=== PATIENT | female | born 1960 | race Caucasian/White ===

== ENCOUNTER 2017-06-29 09:08 | Outpatient (CLI) | payer BC ==
--- NOTE | 2017-06-30 14:54 | Mammography Report ---
DIGITAL SCREENING MAMMOGRAM: 06/29/2017 CLINICAL INDICATION: A 56-year-old with history of late childbearing for screening. COMPARISON: 01/2014, 03/2011, 01/2009, 12/2007 TECHNIQUE: Routine CC and MLO projections were obtained of the breasts as well as bilateral laterall y exaggerated craniocaudal views. FINDINGS: The breasts again demonstrate extremely dense parenchyma, limiting the sensitivity of mamm ography. Punctate, typically benign calcifications are present. No suspicious masses, clustered willian rocalcifications, or regions of architectural distortion are identified. IMPRESSION: BENIGN FINDINGS. RECOMMENDATION: Routine annual screening unless otherwise clinically indicated. BIRADS CATEGORY 2 - BENIGN FINDINGS. STANDARD QUALIFYING STATEMENTS 1. This examination was reviewed with the aid of Computer-Aided Detection (CAD). 2. A negative or benign imaging report should not delay biopsy if clinically suspicious findings are present. Consider surgical consultation if warranted. More than 5% of cancers are not identified by i maging. 3. Dense breasts may obscure an underlying neoplasm. JOB #: [id number] EXT JOB #:[id number]
== END 2017-06-29 09:09 | disposition home or self-care (01) ==
LOC: DI.N 09:08
PROVIDERS: ATTEND Family Medicine
DX: Z12.31 Encounter for screening mammogram for malignant neoplasm of breast (principal)
CPT/HCPCS: 77067

== ENCOUNTER 2018-10-19 10:32 | Outpatient (CLI) | payer OTHER ==
--- NOTE | 2018-10-19 11:22 | Mammography Report ---
Reason: SCREENING MAMMO Procedure Date: 10/19/2018 Accession Number: [id number] / [id number] Procedure: MGN - Screening Mammo Dig Bilat CPT Code: FULL RESULT: EXAM: Screening Mammo Dig Bilat DATE: 10/19/2018 10:51 AM CLINICAL HISTORY: Routine screening. No reported personal or family history of breast cancer. TECHNIQUE: Bilateral CC and MLO views were obtained. COMPARISON: 06/29/2017 through 01/23/2014 FINDINGS: The breasts demonstrate extremely dense parenchyma bilaterally, limiting the sensitivity of mammography. Bilateral breasts: There are no suspicious masses, calcifications or areas of distortion. IMPRESSION: Negative examination RECOMMENDATION: Routine annual screening unless otherwise clinically indicated. BI-RADS CATEGORY 1: Negative STANDARD QUALIFYING STATEMENTS: 1. This examination was reviewed with the aid of Computer-Aided Detection (CAD). 2. A negative or benign imaging report should not preclude biopsy if clinically suspicious findings are present. 3. Dense breasts may obscure an underlying neoplasm. 4. This examination was reviewed without the aid of 3D breast imaging (tomosynthesis).
== END 2018-10-19 10:33 | disposition home or self-care (01) ==
LOC: DI.N 10:32
DX: Z12.31 Encounter for screening mammogram for malignant neoplasm of breast (principal)
CPT/HCPCS: 77067

== ENCOUNTER 2019-05-17 19:40 | Emergency (ER) | payer OTHER ==
--- NOTE | 2019-05-17 20:23 | ED Physician Documentation ---
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 She had a contacts on so she really did not think that much of it but then she developed a "floater" in the left lower quadrant of that eye that comes and goes. She went home and took her contacts out wondering if it could be something related to the contacts in the fluorescent lights but the symptoms did not resolve. The halo has gone away although the lights driving here were "sparkly ear" than normal. She still has this black small floater in the left lower quadrant of her vision of the left eye that comes and goes. She never really had any blurry vision. She is concerned because she has a history of a spot on 1 of her retinas that she does not know which one it was that look like it could be a detachment in the past and is been followed by her charge out clerk at [facility]. 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 Review of Systems Eyes: reports: Irritation (She felt like there was something hanging off of her eyelashes causing her vision change or on her hair.), Other (No pain in the eye.) Neurologic: denies: Headache PD PAST MEDICAL HISTORY - Past Medical History Cardiovascular: None Respiratory: None Endocrine/Autoimmune: None GI: None : None HEENT: None Psych: None Musculoskeletal: None Derm: None - Past Surgical History HEENT: Other - Present Medications Home Medications: Ambulatory Orders Medication Instructions Recorded Confirmed Alprazolam [Xanax] 0.5 mg PO DAILY 07/26/14 07/26/14 - Allergies Allergies/Adverse Reactions: Allergies Allergy/AdvReac Type Severity Reaction Status Date / Time codeine Allergy Unknown Verified 05/18/19 07:56 oxycodone Allergy Nausea Verified 05/17/19 19:46 hay fever Allergy Unknown Uncoded 05/18/19 07:56 PD ED PE NORMAL - Vitals Vital signs reviewed: Yes - General General: Alert and oriented X 3, No acute distress, Well developed/nourished - HEENT HEENT: Atraumatic, PERRL, EOMI, Moist mucous membranes, Other (Funduscopic exam is limited in this environment. The fundus appears normal. Visual acuity with glasses R 20/25 and L 20/40. 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 Ghosh who is gracious enough to take my call. He recommend that she follow-up with her manager adobe at [facility] tomorrow and that he would see her in follow-up if they were unavailable for some reason. Departure - Departure Disposition: 01 Home, Self Care Clinical Impression: Vision changes Condition: Good Instructions: ED Tear Retinal Follow-Up: [facility] [Provider Group] Comments: Follow-up first thing tomorrow morning with your eye doctor for evaluation for possible vitreous tear. If they are not available for some reason, Dr Ghosh at [facility] has agreed to evaluate you. Discharge Date/Time: 05/17/19 21:56
[2019-05-17 20:38] VITALS: BP 153/97
== END 2019-05-17 21:56 | disposition home or self-care (01) ==
LOC: ED 19:40
DX: H53.9 Unspecified visual disturbance (principal)
CPT/HCPCS: 99282

== ENCOUNTER 2019-10-18 10:23 | Outpatient (CLI) | payer OTHER ==
--- NOTE | 2019-10-18 11:05 | Mammography Report ---
Reason: ROUTINE MAMMO Procedure Date: 10/18/2019 Accession Number: [id number] / [id number] Procedure: MGN - Screening Mammo w/Benito CPT Code: Final Report FULL RESULT: EXAM: Screening Mammo w/Benito DATE: 10/18/2019 10:48 AM CLINICAL HISTORY: Screening encounter. History of late childbearing. TECHNIQUE: (B) - Bilateral CC, laterally exaggerated CC, MLO views were obtained. COMPARISON: 10/19/2018 through 01/23/2014. PARENCHYMAL PATTERN: (VD) - The breast(s) demonstrate(s) extremely dense parenchyma, limiting the sensitivity of mammography. FINDINGS: There are no suspicious masses, calcifications, or areas of distortion. IMPRESSION: Negative examination. BI-RADS category 1. RECOMMENDATION: (ANNUAL) - Recommend routine annual screening mammography. BI-RADS CATEGORY: (1) - Negative. STANDARD QUALIFYING STATEMENTS: 1. This examination was not reviewed with the aid of Computer-Aided Detection (CAD). 2. A negative or benign imaging report should not preclude biopsy if clinically suspicious findings are present. 3. Dense breasts may obscure an underlying neoplasm. 4. This examination was reviewed with the aid of 3D breast imaging (tomosynthesis).
== END 2019-10-18 10:24 | disposition home or self-care (01) ==
LOC: DI.N 10:23
DX: Z12.31 Encounter for screening mammogram for malignant neoplasm of breast (principal)
CPT/HCPCS: 77063; 77067

== ENCOUNTER 2021-01-21 09:48 | Outpatient (CLI) | payer OTHER ==
--- NOTE | 2021-01-23 11:59 | Mammography Report ---
BILATERAL DIGITAL SCREENING MAMMOGRAM 3D/2D: 01/21/2021 CLINICAL: Routine screening. Comparison is made to exams dated: 10/18/2019 mammogram, 10/19/2018 mammogram, 06/29/2017 mammogram, mammogram, 01/23/2014 mammogram, and 03/17/2011 mammogram - [facility]. The tissue of both breasts is extremely dense, which lowers the sensitivity of mammography. No significant masses, calcifications, or other findings are seen in either breast. There has been no significant interval change. IMPRESSION: NEGATIVE There is no mammographic evidence of malignancy. A 1 year screening mammogram is recommended. This exam was interpreted at Station ID: [id number]. NOTE: For mammograms, a report in lay terms will be sent to the patient. Approximately 15% of breast malignancies will not be visualized mammographically. In the management of a palpable breast mass, a negative mammogram must not discourage biopsy of a clinically suspicious lesion. Electronically Signed By: Marcos Sosa acr/penrad:01/22/2021 16:49:30 ACR BI-RADS Category 1: Negative 3341F PARENCHYMAL PATTERN: (VD) - The breast(s) demonstrate(s) extremely dense parenchyma, limiting the sen sitivity of mammography. BI-RADS CATEGORY: (1) - 1 RECOMMENDATION: (ANNUAL) - Recommend routine annual screening mammography. [id number] 1 year screening LATERALITY: (B)
== END 2021-01-21 09:49 | disposition home or self-care (01) ==
LOC: DI 09:48
DX: Z12.31 Encounter for screening mammogram for malignant neoplasm of breast (principal)

== ENCOUNTER 2021-01-27 10:26 | Outpatient (CLI) | payer OTHER ==
[~2021-01-27 10:26] MED LIST: GADOBUTROL 10 MMOL/10 ML VIAL ONE
--- NOTE | 2021-01-27 11:39 | MRI Report ---
PROCEDURE: Brain W/WO INDICATIONS: MEMORY LOSS CONTRAST: IV CONTRAST: Gadavist ml: 6.2 TECHNIQUE: Noncontrast axial T1 spin echo, axial T2 fast spin echo, sagittal and axial FLAIR, coronal T2 fast sp in echo, axial gradient echo, axial diffusion and ADC through the brain. After the administration of contrast, axial and coronal T1 spin echo with fat saturation through the brain. COMPARISON: None. FINDINGS: Image quality: Excellent. CSF spaces: Basal cisterns are patent. No extra-axial fluid collections. Ventricles are normal in size and shape. Brain: No midline shift. No intracranial bleeds. There is mild enlargement of the pituitary gland. There is cerebral volume loss for age. There is periventricular white matter chronic small vessel is chemic change. The brainstem appears normal. Diffusion-weighted images demonstrate no acute ischemi c insults. No chronic ischemic insults. Normal intravascular flow voids are present. Skull and face: Calvarial marrow is normal in signal. Orbits appear normal. Sinuses: Sinuses and mastoids appear clear. IMPRESSION: 1. Mild pituitary gland enlargement. Further evaluation with MRI pituitary protocol is recommended. Reviewed by: Lisa Lopez MD on 01/27/2021 11:38 AM PDT Approved by: Lisa Lopez MD on 01/27/2021 11:38 AM PDT Station ID: [id number]
[2021-01-27] MEDS ORDERED: GADOBUTROL 10 MMOL/10 ML VIAL IVP ONE (14:01)
== END 2021-01-27 10:27 | disposition home or self-care (01) ==
LOC: DI 10:26
PROVIDERS: ATTEND Family Medicine
DX: R41.3 Other amnesia (principal); E23.6 Other disorders of pituitary gland
CPT/HCPCS: 70553; A9585

== ENCOUNTER 2021-02-17 12:48 | Outpatient (CLI) | payer OTHER ==
[2021-02-17] MEDS ORDERED: GADOBUTROL 10 MMOL/10 ML VIAL ONE (12:59)
--- NOTE | 2021-02-17 16:22 | MRI Report ---
PROCEDURE: Brain W/WO INDICATIONS: PITUITARY ADENOMA,PITUITARY GIGANTISM CONTRAST: IV CONTRAST: Gadavist ml: 6.2 TECHNIQUE: Noncontrast axial T1 spin echo, axial T2 fast spin echo, sagittal and axial FLAIR, coronal T2 fast sp in echo, axial gradient echo, axial diffusion and ADC through the brain. After the administration of contrast, axial and coronal T1 spin echo with fat saturation through the brain. COMPARISON: MRI brain 01/27/2021.. FINDINGS: Image quality: Excellent. CSF spaces: Basal cisterns are patent. No extra-axial fluid collections. Ventricles are normal in size and shape. Brain: No midline shift. No intracranial bleeds or masses. There is mild, diffuse cerebral volume l oss. A few, small, punctate foci of increased T2 signal are noted in the frontal subcortical white ma tter tracts compatible with minimal chronic microvascular ischemic change. No abnormal intracranial e nhancement. There is cerebral volume loss for age. There is periventricular white matter chronic sm all vessel ischemic change. The brainstem appears normal. Diffusion-weighted images demonstrate no acute ischemic insults. No chronic ischemic insults. Normal intravascular flow voids are present. D ural sinuses demonstrate normal postcontrast enhancement. Pituitary gland has normal size and contour. No pituitary mass identified. No areas of delayed postco ntrast enhancement identified in the pituitary gland. Pituitary infundibulum is midline, has normal c ontours and demonstrates normal postcontrast enhancement. No suprasellar masses identified. The optic chiasm is normal. The cavernous sinus enhances normally. Skull and face: Calvarial marrow is normal in signal. Orbits appear normal. Sinuses: Sinuses and mastoids appear clear. IMPRESSION: 1. No pituitary mass/nodule identified. 2. No abnormal intracranial mass or suspicious postcontrast enhancement. 3. Mild, diffuse cerebral volume loss. 4. Minimal subcortical white matter chronic microvascular ischemic changes. Reviewed by: Beatriz Reardon MD, PhD on 02/17/2021 4:21 PM PDT Approved by: Beatriz Reardon MD, PhD on 02/17/2021 4:21 PM PDT Station ID: [id number]
[2021-02-17] MEDS ORDERED: GADOBUTROL 10 MMOL/10 ML VIAL IVP ONE (17:44)
== END 2021-02-17 12:49 | disposition home or self-care (01) ==
LOC: DI 12:48
PROVIDERS: ATTEND Family Medicine
DX: I67.82 Cerebral ischemia (principal)
CPT/HCPCS: 70553; A9585

== ENCOUNTER 2021-05-13 12:17 | Outpatient (CLI) | payer OTHER ==
[2021-05-13 12:16] LABS: FECAL OCCULT BLOOD (FIT) NEGATIVE (NEGATIVE)
[2021-05-13 12:39] LABS: H. PYLORIS ANTIGEN STL NEGATIVE (Negative)
== END 2021-05-13 12:18 ==
LOC: LAB.WCP 12:17
PROVIDERS: ATTEND Family Medicine
DX: R19.7 Diarrhea, unspecified (principal)
CPT/HCPCS: 81599; 82274; 83993; 87045; 87177; 87209; 87329; 87338; 87427; 87449; 87493

== ENCOUNTER 2021-08-12 08:00 | Outpatient (CLI) | payer OTHER | END 2021-08-12 23:59 | LOC: LAB.N 08:00 | PROVIDERS: ATTEND Family Medicine | DX: J02.9 Acute pharyngitis, unspecified (principal) | CPT/HCPCS: 87070 ==

== ENCOUNTER 2022-07-24 07:55 | Outpatient (CLI) | payer OTHER ==
--- NOTE | 2022-07-27 11:44 | Mammography Report ---
BILATERAL DIGITAL SCREENING MAMMOGRAM 3D/2D WITH EXAGGERATED CC: 07/24/2022 CLINICAL: Routine screening. Comparison is made to exams dated: 01/21/2021 mammogram, 10/18/2019 mammogram, and 10/19/2018 mammogram - [facility]. Both breasts are extremely dense, which lowers the sensitivity of mammography (category d />75% gland ular tissue). No significant masses, calcifications, or other findings are seen in either breast. There has been no significant interval change. IMPRESSION: NEGATIVE There is no mammographic evidence of malignancy. A 1 year screening mammogram is recommended. Based on Tyrer-Cuzick model (a risk assessment model), the patient's lifetime risk is 22.1% and her 1 0 year risk is 9.5%. If a patient has an elevated risk, a more comprehensive evaluation should be con sidered and/or a referral to a genetic counselor. The [place] [employer], [employer], and NCCN Guidelines advise the consideration of Breast MRI as an adjunct to screening mammog horacio in patients whose "Lifetime risk to develop breast cancer" is 20% or higher. This exam was interpreted at Station ID: [id number]. NOTE: For mammograms, a report in lay terms will be sent to the patient. Approximately 15% of breast malignancies will not be visualized mammographically. In the management of a palpable breast mass, a negative mammogram must not discourage biopsy of a clinically suspicious lesion. Electronically Signed By: Bassem Paniagua M.D., jr/cheo:07/24/2022 10:38:37 ACR BI-RADS Category 1: Negative 3341F PARENCHYMAL PATTERN: (VD) - The breast(s) demonstrate(s) extremely dense parenchyma, limiting the sen sitivity of mammography. BI-RADS CATEGORY: (1) - 1 RECOMMENDATION: (ANNUAL) - Recommend routine annual screening mammography. [id number] 1 year screening LATERALITY: (B)
== END 2022-07-24 07:56 | disposition home or self-care (01) ==
LOC: DI 07:55
DX: Z12.31 Encounter for screening mammogram for malignant neoplasm of breast (principal)

== ENCOUNTER 2022-08-05 08:00 | Outpatient (CLI) | payer OTHER ==
[2022-08-05 21:55] LABS: BACTERIAL VAGINOSIS DNA NEGATIVE (NEGATIVE); CANDIDA GLABRATA DNA NEGATIVE (NEGATIVE); CANDIDA GROUP DNA NEGATIVE (NEGATIVE); CANDIDA KRUSEI DNA NEGATIVE (NEGATIVE); TRICHOMONAS VAGINALIS DNA NEGATIVE (NEGATIVE)
== END 2022-08-05 23:59 | disposition home or self-care (01) ==
LOC: LAB.WCP 08:00
PROVIDERS: ATTEND Physician Assistant
DX: N89.8 Other specified noninflammatory disorders of vagina (principal)
CPT/HCPCS: 81514

== ENCOUNTER 2022-09-04 10:47 | Outpatient (CLI) | payer OTHER ==
--- NOTE | 2022-09-04 14:44 | DEXA Report ---
PROCEDURE: Dexa Spine and/or Hip INDICATIONS: POST MENOPAUSAL TECHNIQUE: Dual energy x-ray absorptiometry (DXA) was performed on a Lat[employer]Leap System. Regions measur ed are the AP Spine, femoral neck, and if needed forearm. COMPARISON: None. FINDINGS: Lumbar Spine: Bone Mineral Density 1.196 g/cm/cm,T score 0.1, normal Left Femoral Neck: Bone Mineral Density 0.795 g/cm/cm, T score -1.7, osteopenia Left Hip: Bone Mineral Density 0.842 g/cm/cm,T score -1.3, osteopenia (T score greater or equal to -1.0: NORMAL) (T score from -1.1 to -2.4: OSTEOPENIA) (T score less than or equal to -2.5 to: OSTEOPOROSIS) Impression: Bone mineral density within the osteopenia range at the left hip and left femoral neck. Fracture risk is increased. Patients with diagnosis of osteoporosis or osteopenia should have regular bone mineral density assess ment. For those eligible for Medicare, routine testing is allowed once every 2 years. Testing frequ ency can be increased for patients who have rapidly progressing disease or for those who are receivin g medical therapy to restore bone mass. Reviewed by: Alberto Means MD on 09/04/2022 2:43 PM PST Approved by: Alberto Means MD on 09/04/2022 2:43 PM PST Station ID: [id number]
== END 2022-09-04 10:48 | disposition home or self-care (01) ==
LOC: DI 10:47
PROVIDERS: ATTEND Physician Assistant
DX: M85.89 Other specified disorders of bone density and structure, multiple sites (principal); Z78.0 Asymptomatic menopausal state

== ENCOUNTER 2022-11-13 13:15 | Outpatient (CLI) | payer OTHER | END 2022-11-13 13:30 | disposition home or self-care (01) | LOC: LAB.N 13:15 | PROVIDERS: ATTEND Physician Assistant Medical | DX: N30.00 Acute cystitis without hematuria (principal) | CPT/HCPCS: 87086; 87181 ==

== ENCOUNTER 2023-06-28 07:36 | Outpatient (CLI) | payer OTHER ==
[2023-06-28 12:19] LABS: BASOPHILS % (AUTO) 0.5 %; EOSINOPHILS # (AUTO) 0.2 10^3/uL (0.0-0.7); EOSINOPHILS % (AUTO) 2.7 %; HGB - HEMOGLOBIN 13.7 g/dL (12.0-16.0); LYMPHOCYTES # (AUTO) 2.4 10^3/uL (1.5-3.5); LYMPHOCYTES % (AUTO) 40.7 %; MEAN CORPUSCULAR HEMOGLOBIN 30.3 pg (27.0-31.0); MEAN CORPUSCULAR HGB CONC 31.1 g/dL (32.0-36.0); MEAN CORPUSCULAR VOLUME 97.3 fL (81.0-99.0); MEAN PLATELET VOLUME 10.6 fL (7.9-10.8); MONOCYTES # (AUTO) 0.8 10^3/uL (0.0-1.0); MONOCYTES % (AUTO) 13.1 %; NEUTROPHILS # (AUTO) 2.5 10^3/uL (1.5-6.6); NEUTROPHILS % (AUTO) 42.7 %; PLT - PLATELET COUNT 187 10^3/uL (130-450); RED BLOOD COUNT 4.52 10^6/uL (4.20-5.40); RED CELL DISTRIBUTION WIDTH 11.9 % (12.0-15.0); WHITE BLOOD COUNT 5.9 x10^3/uL (4.8-10.8)
[2023-06-28 12:34] LABS: ALBUMIN 4.1 g/dL (3.2-5.5); ALBUMIN/GLOBULIN RATIO 1.7 (1.0-2.2); ALKALINE PHOSPHATASE 69 IU/L (42-121); ALT ALANINE AMINOTRANSFERASE 20 IU/L (10-60); AST ASPARTATE AMINOTRANSFERASE 27 IU/L (10-42); BILIRUBIN,TOTAL 0.4 mg/dL (0.2-1.0); BUN - BLOOD UREA NITROGEN 13 mg/dL (6-20); CALCIUM 9.4 mg/dL (8.5-10.3); CARBON DIOXIDE - CO2 30 mmol/L (21-32); CHLORIDE 104 mmol/L (101-111); CHOL/HDL RATIO 2.5 (<4.4); CHOLESTEROL 180 mg/dL; CREATININE 0.9 mg/dL (0.6-1.3); GFR - MDRD 64 (>89); GLUCOSE 86 mg/dL (74-104); HDL CHOLESTEROL 71 mg/dL; LDL CHOLESTEROL,CALCULATED 84 mg/dL; LDL/HDL RATIO 1.2 (<4.4); POTASSIUM 3.9 mmol/L (3.5-4.5); SODIUM 138 mmol/L (135-145); TOTAL PROTEIN 6.5 g/dL (6.4-8.9); TRIGLYCERIDES 127 mg/dL (48-352); VLDL CHOLESTEROL 25 mg/dL
== END 2023-06-28 07:37 | disposition home or self-care (01) ==
LOC: LAB.N 07:36
PROVIDERS: ATTEND Physician Assistant
DX: Z00.00 Encounter for general adult medical examination without abnormal findings (principal); Z13.220 Encounter for screening for lipoid disorders
CPT/HCPCS: 36415; 80053; 80061; 83721; 85025

== ENCOUNTER 2023-07-05 12:39 | Outpatient (CLI) | payer OTHER ==
--- NOTE | 2023-07-06 15:30 | Mammography Report ---
BILATERAL DIGITAL DIAGNOSTIC MAMMOGRAM 3D/2D WITH EXAGGERATED CC SPOT COMPRESSION: 07/05/2023 CLINICAL: Palpable right breast lump. Due for bilateral exam. Comparison is made to exams dated: 07/24/2022 mammogram, 01/21/2021 mammogram, 10/18/2019 mammogram, mammogram, 06/29/2017 mammogram, and 02/04/2016 mammogram - [facility]. Both breasts are extremely dense, which lowers the sensitivity of mammography (category d />75% gland ular tissue). There is a new 1.2 cm irregular equal density focal asymmetry in the right breast at 3 o'clock foreign banknote teller ior depth. This correlates as palpated, with area of clinical concern, and skin marker. There is ar chitectural distortion associated with the focal asymmetry. No other significant masses, calcifications, or other findings are seen in either breast. IMPRESSION: INCOMPLETE: NEEDS ADDITIONAL IMAGING EVALUATION The new 1.2 cm irregular equal density focal asymmetry in the right breast is indeterminate. An ultr asound is recommended for further evaluation and is scheduled to immediately follow this examination. Based on Tyrer-Cuzick model (a risk assessment model), the patient's lifetime risk is 20.4% and her 1 0 year risk is 9.1%. If a patient has an elevated risk, a more comprehensive evaluation should be con sidered and/or a referral to a genetic counselor. The [place], [employer], and NCCN Guidelines advise the consideration of Breast MRI as an adjunct to screening mammog horacio in patients whose "Lifetime risk to develop breast cancer" is 20% or higher. This exam was interpreted at Station ID: [id number]. NOTE: For mammograms, a report in lay terms will be sent to the patient. Approximately 15% of breast malignancies will not be visualized mammographically. In the management of a palpable breast mass, a negative mammogram must not discourage biopsy of a clinically suspicious lesion. Electronically Signed By: Loc Pickens M.D. aty/:07/05/2023 14:23:07 ACR BI-RADS Category 0: Incomplete 3340F PARENCHYMAL PATTERN: (VD) - The breast(s) demonstrate(s) extremely dense parenchyma, limiting the sen sitivity of mammography. BI-RADS CATEGORY: (0) - 0 Ultrasound [id number] Immediate follow-up LATERALITY: (R)
--- NOTE | 2023-07-06 15:30 | Ultrasound Report ---
LIMITED ULTRASOUND OF RIGHT BREAST AND AXILLA: 07/05/2023 CLINICAL: Palpable right breast lump. Comparison is made to exams dated: 07/24/2022 mammogram, 01/21/2021 mammogram, and 10/18/2019 mammogra - [facility]. Color flow ultrasound of the right breast 3 o'clock, and axilla regions was performed. Lai scale im ages of the real-time examination were reviewed. There is a 1.1 cm x 0.7 cm x 1 cm irregular mass in the right breast at 3 o'clock posterior depth 5 c m from the nipple. This irregular mass is hypoechoic. This correlates as palpated, with mammography findings, and area of clinical concern. Color flow imaging demonstrates that there is no vascularit y present. No significant abnormalities were seen sonographically in the right axilla. IMPRESSION: HIGHLY SUGGESTIVE OF MALIGNANCY The 1.1 cm x 0.7 cm x 1 cm irregular mass in the right breast is highly suggestive of malignancy. An ultrasound guided biopsy is recommended. No sonographic abnormalities identified in the axilla. No axillary adenopathy. Findings and recommendations were discussed with the patient by Dr. Mccall during today's examination. This exam was interpreted at Station ID: [id number]. Electronically Signed By: Loc Pickens M.D. aty/:07/05/2023 14:25:40 Ultrasound BI-RADS: 5 Highly suggestive of malignancy BI-RADS CATEGORY: (5) - 5 Biopsy [id number] Immediate follow-up LATERALITY: (R)
== END 2023-07-05 12:40 | disposition home or self-care (01) ==
LOC: DI 12:39
PROVIDERS: ATTEND Physician Assistant
DX: N63.15 Unspecified lump in the right breast, overlapping quadrants (principal); R92.343 Mammographic extreme density, bilateral breasts

== ENCOUNTER 2023-07-19 08:45 | Outpatient (CLI) | payer OTHER ==
[~2023-07-19 08:45] MED LIST changes: -GADOBUTROL 10 MMOL/10 ML VIAL ONE; +LIDOCAINE 1%-EPI 1:100000 50 ML VIAL ONE; +LIDOCAINE-MPF 1% 5 ML VIAL ONE
[2023-07-19] MEDS ORDERED: LIDOCAINE-MPF 1% 5 ML VIAL TD ONE (10:41)
[2023-07-19] MEDS ORDERED: LIDOCAINE 1%-EPI 1:100000 50 ML VIAL TD ONE (11:00)
[2023-07-19] MEDS ORDERED: LIDOCAINE 1%-EPI 1:100000 50 ML VIAL TD SCH (11:00)
--- NOTE | 2023-07-22 08:33 | Mammography Report ---
UNILATERAL RIGHT DIGITAL DIAGNOSTIC MAMMOGRAM 3D/2D POST-PROCEDURE IMAGING FOR MARKER PLACEMENT: 07/09 CLINICAL: Post right breast ultrasound biopsy clip placement imaging. Comparison is made to exams dated: 07/19/2023 ultrasound biopsy, 07/05/2023 ultrasound, 07/24/2022 m ammogram, 01/21/2021 mammogram, and 07/05/2023 mammogram - [facility]. The right breast is extremely dense, which lowers the sensitivity of mammography (category d />75% gl andular tissue). There is a marker clip in the appropriate position in the right breast at 3 o'clock middle depth. Th is marker clip placement is at the biopsy site. IMPRESSION: POST PROCEDURE MAMMOGRAM FOR MARKER PLACEMENT There was a successful marker clip placement in the right breast middle depth. Based on Tyrer-Cuzick model (a risk assessment model), the patient's lifetime risk is 20.4% and her 1 0 year risk is 9.1%. If a patient has an elevated risk, a more comprehensive evaluation should be con sidered and/or a referral to a genetic counselor. The [place] [employer], [employer], and NCCN Guidelines advise the consideration of Breast MRI as an adjunct to screening mammog horacio in patients whose "Lifetime risk to develop breast cancer" is 20% or higher. This exam was interpreted at Station ID: [id number]. NOTE: For mammograms, a report in lay terms will be sent to the patient. Approximately 15% of breast malignancies will not be visualized mammographically. In the management of a palpable breast mass, a negative mammogram must not discourage biopsy of a clinically suspicious lesion. Electronically Signed By: Giana Tang M.D. aj/:07/21/2023 15:05:14 ACR BI-RADS Category Post-procedure mammogram for marker placement PARENCHYMAL PATTERN: (VD) - The breast(s) demonstrate(s) extremely dense parenchyma, limiting the sen sitivity of mammography. BI-RADS CATEGORY: () - Unspecified - other recall n/a LATERALITY: (B)
--- NOTE | 2023-07-22 08:33 | Ultrasound Report ---
ULTRASOUND GUIDED BIOPSY RIGHT BREAST USING VACUUM DEVICE WITH MARKING DEVICE INSERTED: 07/19/2023 CLINICAL: Right breast mass. PATIENT CONSENT: Risks (minor bleeding, infection, vasovagal reaction and repeat procedure), benefits and alternatives were explained to the patient and written informed consent was obtained. Correlation is made to exams dated: 07/05/2023 ultrasound, 07/05/2023 mammogram, 07/24/2022 mammogra m, 01/21/2021 mammogram, 10/18/2019 mammogram, and 10/19/2018 mammogram - [facility]. An ultrasound guided biopsy using real-time ultrasound was performed for the concerning 1.1 cm x 0.7 cm x 1 cm mass located in the right breast at 3 o'clock posterior depth 5 cm from the nipple. This w as described on the previous ultrasound report. The skin was prepped in the usual manner. Local ane sthetic was administered to the access site. A skin sean was made in the breast. A biopsy needle wa s placed adjacent to the abnormality under ultrasound guidance. Once the needle was documented to be in the correct location, four specimens were obtained using the Mammotome biopsy system. A clip was inserted into the biopsy cavity. Post procedure imaging demonstrates the location device at the [facility] area. The specimens were sent to the laboratory for pathological analysis. IMPRESSION: ULTRASOUND GUIDED BIOPSY MALIGNANT Ultrasound guided biopsy of the 1.1 cm x 0.7 cm x 1 cm mass in the right breast at 3 o'clock posterio r depth 5 cm from the nipple was successful. 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 Pathology results are concordant with imaging findings. Recommend surgery and oncology consultation. Recommend breast MRI for evaluation of extent of disease. This exam was interpreted at Station ID: [id number]. Giana Boone M.D., PH.D manas,anayeli/:07/21/2023 22:39:14 BI-RADS CATEGORY: () - Unspecified - other recall n/a LATERALITY: (B)
== END 2023-07-19 08:46 | disposition home or self-care (01) ==
LOC: DI 08:45
PROVIDERS: ATTEND Physician Assistant
DX: C50.311 Malignant neoplasm of lower-inner quadrant of right female breast (principal); Z17.0 Estrogen receptor positive status [ER+]; R92.341 Mammographic extreme density, right breast
CPT/HCPCS: 19083; 77065; J3490